=== PATIENT | female | born 1985 | race Caucasian/White ===

== ENCOUNTER 2023-07-04 16:31 | Inpatient (IN) | payer OTHER, SELFPAY ==
[2023-07-04 16:43] VITALS: BP 164/95; BMI 34.5
[2023-07-04 17:11] LABS: % Basophils 0.6 % (0-2); % Eosinophils 3.5 % (0-6); % Immature Granulocytes 0.3 % (0-0.5); % Lymphocytes 30.7 % (20.5-51.1); % Monocytes 6.8 % (1.7-9.3); % Neutrophils 58.1 % (42.2-75.2); Absolute Basophils 0.1 10^3/uL (0-0.2); Absolute Eosinophils 0.3 10^3/uL (0-0.7); Absolute Monocytes 0.7 10^3/uL (0.1-0.6); Absolute Neutrophils 5.6 10^3/uL (1.4-6.5); Hemoglobin 12.1 g/dL (12.0-16.0); Mean Corp Hgb Conc. 34.6 g/dL (33.0-37.0); Mean Corpuscular Volume 83.9 fL (81.0-99.0); Mean Platelet Volume 9.9 fL (7.4-10.4); Nucleated Red Blood Cells % 0 %; Platelet Count 464 10^3/uL (130-400); Red Blood Cell Count 4.17 10^6/uL (4.20-5.40); Red Cell Dist. Width 12.9 % (11.5-14.5); White Blood Cell Count 9.7 10^3/uL (4.8-10.8)
[2023-07-04 17:21] LABS: Urine Albumin 1+ (Neg - Trace); Urine Bilirubin Negative (Negative); Urine Character Slightly Cloudy (Clear); Urine Color Brown; Urine Glucose Negative (Negative); Urine Ketone Trace (Negative); Urine Leukocyte 2+ (Negative); Urine Nitrite Positive (Negative); Urine Occult Blood 4+ (Negative); Urine Specific Gravity 1.025 (<1.030); Urine Urobilinogen Negative (Neg - 1+)
[2023-07-04 17:32] LABS: ALT (SGPT) 19 U/L (0-35); AST (SGOT) 22 U/L (14-36); Albumin 3.9 g/dl (3.5-5.0); Alkaline Phosphatase 124 U/L (38-126); Blood Urea Nitrogen 17 mg/dl (7-17); Calcium 9.3 mg/dl (8.4-10.2); Carbon Dioxide 24 mmol/L (22-30); Chloride 106 mmol/L (98-107); Estimated Creatinine Clearance 120 ml/min; Glucose 98 mg/dl (70-99); Potassium 4.5 mmol/L (3.5-5.1); Sodium 135 mmol/L (135-145); Total Bilirubin 0.4 mg/dl (0.2-1.3); Total Protein 7.1 g/dl (6.3-8.2); Uric Acid 5.9 mg/dl (2.5-6.2); eGFR > 60.00
[2023-07-04 17:37] LABS: Urine Urothelial Cell 0-2 /LPF (FEW)
[2023-07-04 17:38] LABS: Urine Red Blood Cell 90-100 /HPF (0-2)
[2023-07-04 17:39] LABS: Urine Bacteria Few (Negative)
[2023-07-04 17:40] LABS: Urine White Cell 26-30 /HPF (0-5)
[2023-07-04 17:44] LABS: Protein/creatinine Ratio 0.6; Urine Protein 88 mg/dl
[2023-07-04] MEDS: MAGNESIUM SULFATE 100 IV (18:45)
[2023-07-04] MEDS: LR 1000 IV (18:46)
[2023-07-04] MEDS: MAGNESIUM SULFATE 40 GRAM 1000 IV (19:10)
[2023-07-04] MEDS: TRANDATE 20 MG IV (20:26)
[2023-07-04] MEDS: TYLENOL 650 MG PO (22:49)
[2023-07-05] MEDS: TYLENOL 650 MG PO (04:46)
[2023-07-05 05:44] LABS: Magnesium 6.1 mg/dl (1.6-2.3)
[2023-07-05] MEDS: LR 1000 IV (07:30)
[2023-07-05] MEDS: TRANDATE 200 MG PO (08:00)
[2023-07-05] MEDS: MAGNESIUM SULFATE 40 GRAM 1000 IV (13:58)
[2023-07-05] MEDS: TRANDATE 100 MG PO (20:28)
[2023-07-06] MEDS: TRANDATE 100 MG PO (08:21)
== END 2023-07-06 11:00 | disposition home or self-care (01) | DRG 776 ==
LOC: LDRP 16:31
PROVIDERS: Obstetrics & Gynecology; ADMITTING PHYSICIAN Obstetrics & Gynecology
DX: O14.15 Severe pre-eclampsia, complicating the puerperium (principal); D56.3 Thalassemia minor; Z88.1 Allergy status to other antibiotic agents; Z88.5 Allergy status to narcotic agent
CPT/HCPCS: 80053; 81003; 81015; 82570; 83735; 84156; 84550; 85025; 86850; 86870; 86900; 86901; 87086

== ENCOUNTER → 2023-10-19 09:44 | Outpatient (REF) | payer OTHER, SELFPAY | LOC: RCS 09:44 | PROVIDERS: ATTENDING PHYSICIAN Family Medicine | DX: I10 Essential (primary) hypertension (principal); R42 Dizziness and giddiness | CPT/HCPCS: 93005 ==

== ENCOUNTER → 2024-01-01 10:12 | Outpatient (REF) | payer OTHER, SELFPAY | LOC: RCS 10:12 | PROVIDERS: ATTENDING PHYSICIAN Internal Medicine Cardiovascular Disease; FAMILY PHYSICIAN Family Medicine | DX: R42 Dizziness and giddiness (principal) | CPT/HCPCS: 93306 ==

== ENCOUNTER → 2024-04-29 14:40 | Outpatient (REF) | payer OTHER, SELFPAY | LOC: RAD 14:40 | PROVIDERS: ATTENDING PHYSICIAN Family Medicine | DX: M79.645 Pain in left finger(s) (principal) | CPT/HCPCS: 73130; 73140 ==

== ENCOUNTER → 2024-12-21 14:31 | Outpatient (REF) | payer OTHER, SELFPAY | LOC: REG 14:31 | PROVIDERS: FAMILY PHYSICIAN Family Medicine | DX: M53.3 Sacrococcygeal disorders, not elsewhere classified (principal) | CPT/HCPCS: 72220 ==

== ENCOUNTER 2025-01-29 15:01 | Outpatient (RCR) | payer OTHER, SELFPAY | END 2025-01-29 23:59 | disposition home or self-care (01) | LOC: RPT 15:01 | PROVIDERS: ATTENDING PHYSICIAN Family Medicine | DX: M53.3 Sacrococcygeal disorders, not elsewhere classified (principal); R10.2 Pelvic and perineal pain; M62.89 Other specified disorders of muscle; Z73.6 Limitation of activities due to disability | CPT/HCPCS: 97140; 97162; 97530 ==

== ENCOUNTER 2025-02-22 16:18 | Outpatient (RCR) | payer OTHER, SELFPAY | END 2025-02-22 23:59 | disposition home or self-care (01) | LOC: RPT 16:18 | PROVIDERS: ATTENDING PHYSICIAN Family Medicine | DX: M53.3 Sacrococcygeal disorders, not elsewhere classified (principal); R10.2 Pelvic and perineal pain; M62.89 Other specified disorders of muscle; Z73.6 Limitation of activities due to disability | CPT/HCPCS: 97110; 97140; 97530 ==

== ENCOUNTER → 2025-04-12 16:25 | Outpatient (REF) | payer OTHER, SELFPAY | LOC: RAD 16:25 | PROVIDERS: ATTENDING PHYSICIAN Family Medicine | DX: M25.551 Pain in right hip (principal) | CPT/HCPCS: 73502 ==

== ENCOUNTER 2025-04-27 10:20 | Outpatient (RCR) | payer OTHER, SELFPAY | END 2025-04-27 23:59 | disposition home or self-care (01) | LOC: RPT 10:20 | PROVIDERS: ATTENDING PHYSICIAN Family Medicine | DX: M53.3 Sacrococcygeal disorders, not elsewhere classified (principal); R10.2 Pelvic and perineal pain; M62.89 Other specified disorders of muscle; Z73.6 Limitation of activities due to disability; R10.20 Pelvic and perineal pain unspecified side; M67.8 Other specified disorders of synovium and tendon | CPT/HCPCS: 97110; 97140 ==

== ENCOUNTER 2025-05-10 15:03 | Outpatient (RCR) | payer OTHER, SELFPAY | END 2025-05-10 23:59 | disposition home or self-care (01) | LOC: RPT 15:03 | PROVIDERS: ATTENDING PHYSICIAN Family Medicine | DX: M53.3 Sacrococcygeal disorders, not elsewhere classified (principal); M62.89 Other specified disorders of muscle; Z73.6 Limitation of activities due to disability; R10.20 Pelvic and perineal pain unspecified side; M67.8 Other specified disorders of synovium and tendon; R10.2 Pelvic and perineal pain | CPT/HCPCS: 97110; 97140 ==